=== PATIENT | female | born 1970 | race Caucasian/White ===

== ENCOUNTER → 2021-01-06 | Day surgery (SDC) | payer OTHER ==
[~2021-01-06] MED LIST: ADDERALL 30 MG30 MG PO; AMBIEN5 MG PO; FENTANYL CITRATE/PF 100MCG/2 ML INJ ONE; MIDAZOLAM HCL 2 MG/2 ML VIAL ONE; TRAZODONE HCL50 MG PO
[2021-01-06 14:45] VITALS: BP 137/71
== END | disposition home or self-care (01) ==
LOC: OR 10:28
PROVIDERS: ATTEND Internal Medicine Gastroenterology
DX: D50.8 Other iron deficiency anemias (principal); K63.5 Polyp of colon; K29.50 Unspecified chronic gastritis without bleeding; K20.90 Esophagitis, unspecified without bleeding; K44.9 Diaphragmatic hernia without obstruction or gangrene; K57.30 Diverticulosis of large intestine without perforation or abscess without bleeding; K64.8 Other hemorrhoids; F90.9 Attention-deficit hyperactivity disorder, unspecified type; Z01.812 Encounter for preprocedural laboratory examination; Z20.822 Contact with and (suspected) exposure to COVID-19; Z68.30 Body mass index [BMI] 30.0-30.9, adult
CPT/HCPCS: 43239; 45384; 81025; J2250; J3010; U0002; 45378